=== PATIENT | male | born 1995 | race Hispanic/Latino ===

== ENCOUNTER 2024-09-06 13:32 | Inpatient (IN) | payer OTHER, SELFPAY ==
[2024-09-05 20:03] VITALS: BP 139/84
[2024-09-05 20:58] LABS: ALT (SGPT) 47 U/L (0-50); AST (SGOT) 32 U/L (17-59); Albumin 4.8 g/dl (3.5-5.0); Alkaline Phosphatase 57 U/L (38-126); Blood Urea Nitrogen 13 mg/dl (9-20); Calcium 10.7 mg/dl (8.4-10.2); Carbon Dioxide 23 mmol/L (22-30); Chloride 106 mmol/L (98-107); Glucose 121 mg/dl (70-99); Potassium 5.1 mmol/L (3.5-5.1); Sodium 137 mmol/L (135-145); Total Protein 7.9 g/dl (6.3-8.2); eGFR > 60.00
[2024-09-05] MEDS: TYLENOL 1000 MG PO (21:41)
[2024-09-05] MEDS: ZOFRAN ODT (ORALLY DISINTEGRATING) 4 MG PO (21:45)
--- NOTE | 2024-09-05 22:38 | ED.GENMED ---
History of Present Illness
<John Riggs PA-C - Last Filed: 09/06/24 15:44>
General
Chief Complaint: Flank Pain
Source: patient
Time Seen by Provider: 09/05/24 22:20
History of Present Illness
History of Present Illness:
29-year-old male with no significant past medical history presents to the emergency department for evaluation of sudden onset left flank pain earlier this evening accompanied with nausea and vomiting, nonbloody nonbilious, minimal relief with 800 mg
of ibuprofen at 6 PM, pain currently still 9 out of 10. Patient was given Tylenol and Zofran in triage with improvement of nausea but minimal relief with pain. No history of similar. Denies any urinary symptoms. No bowel changes. No pain or
swelling of the testicles.
Past History
<John Riggs PA-C - Last Filed: 09/06/24 15:44>
Past History
ED Past Medical History: None
ED Past Surgical History: None
Social History
Tobacco: Non-smoker
Alcohol: None
Drug: Marijuana
Personal:
Living: with family
Review of Systems
<John Riggs PA-C - Last Filed: 09/06/24 15:44>
Review of Systems
All Other Systems: ROS reviewed and negative except as documented in HPI and ROS
Phy Exam
<John Riggs PA-C - Last Filed: 09/06/24 15:44>
Physical Exam
Physical Exam:
GENERAL: Alert , appears uncomfortable
EYE: clear conjunctiva b/l
HEAD: NCAT
ENT: mmm.
CARDIAC: Regular rate and rhythm .
LUNGS: Clear breath sounds bilaterally, no acute respiratory distress, no wheezes/rales/rhonchi
ABDOMEN: Soft, without focal tenderness, no r/g, left CVA tenderness
NEUROLOGICAL: Alert and oriented
SKIN: Warm and dry, skin intact.
MUSCULOSKELETAL: No edema, well perfused.
PSYCH: Normal and appropriate interaction.
Scores
<John Riggs PA-C - Last Filed: 09/06/24 15:44>
Heart Failure Risk
Heart Failure Risk Score: Not Applicable
Heart Score for Chest Pain Patients
STEMI patient?: Not applicable
Withdrawal Assessment of Alcohol
Withdrawal Assessment Completed?: Not applicable
Course
<John Riggs PA-C - Last Filed: 09/06/24 15:44>
Orders/Labs/Results
Orders:
Orders
09/05/24 20:06
Urinalysis Reflex To Culture Urgent
Date Specimen was Collected: 09/05/24
Time Specimen was Collected: 20:06
09/05/24 20:08
CT Abd/pel Without Iv Or Oral Urgent
Comment:
Reason For Exam: flank pain
09/05/24 20:23
Comprehensive Metabolic Panel Urgent
09/05/24 21:37
Acetaminophen [Tylenol] 1,000 mg .ROUTE .STK-MED ONE
09/05/24 21:40
Acetaminophen [Tylenol] 1,000 mg PO NOW STA
09/05/24 21:44
Ondansetron Orally Disint [Zofran Odt (Orally Disintegrating)] 4 mg .ROUTE .STK-MED ONE
Ondansetron Orally Disint [Zofran Odt (Orally Disintegrating)] 4 mg PO NOW STA
09/05/24 22:27
0.9% Sodium Chloride 1000 ml [Nss] 1,000 ml IV BOLUS
Morphine Sulfate 4 mg IV NOW STA
Ondansetron Injectable [Zofran] 4 mg IV NOW STA
09/05/24 23:01
Complete Blood Count/With Diff Urgent
09/05/24 23:42
HYDROmorphone [Dilaudid] 0.5 mg IV NOW STA
09/06/24 01:06
Urine Microscopic Reflex Cult Urgent
Urine Culture Urgent
MANUELITO Source: U
Specimen Description:
Date Specimen was Collected: 09/05/24
Time Specimen was Collected: 20:06
09/06/24 02:02
CefTRIAXone [Rocephin] 2,000 mg IV NOW STA
Ketorolac [Toradol] 15 mg IV NOW STA
09/06/24 02:10
Sterile Water [Sterile Water For Injection] 20 ml .ROUTE .STK-MED
09/06/24 02:32
Admit/Transfer Patient As Directed
Co-Sign Provider:
Level of Care: Observation services
Assign to:: Medical/Surgical
Physician / Group: Kanchan Hernandes
Diagnosis: nephrolithiasis
09/06/24 02:33
Code Status As Directed
Resuscitation Status: Full Code
PRN Pain Medication Management As Directed
May give lesser potent ordered pain med per pt: Yes
preference::
Protocol:: Medication orders for pain may be administered in a
manner that supports deferring to patient preference
when the pt is:
- Requesting an ordered lesser potent pain medication.
Least to most potent pain medications are defined
as: acetaminophen < NSAID < tramadol < opioids
(morphine, oxycodone, hydromorphone).
- Requesting a lesser dose of the same medication IF
ORDERED.
- Requesting a less intrusive route of administration
if both routes are prescribed by the provider (PO <
IV).
09/06/24 03:27
0.9% Sodium Chloride 1000 ml [Nss] 1,000 ml IV 100 mls/hr
Acetaminophen [Tylenol] 650 mg PO Q4HPRN PRN
Bisacodyl [Dulcolax] 10 mg RECTAL [id number] PRN
HYDROmorphone [Dilaudid] 0.5 mg IV Q4HPRN PRN
Ketorolac [Toradol] 10 mg IV Q6HPRN PRN
Ondansetron Injectable [Zofran] 4 mg IV Q6HPRN PRN
Polyethylene Glycol Powder [Miralax] 17 grams PO DAILYPRN PRN
09/06/24 03:27
Consult Notification Routine
Specialty to Notify: Urology
Date consulting provider notified: 09/06/24
Time consulting provider notified: 07:36
Notified:: Provider
UROLOGY CONSULT Routine
Consulting Provider: Sai Ford
Was physician already notified: No
Comment: cholelithiasis
Activity As Directed
Activity Level: Out of Bed-Early Mobility
Pneumatic Compression Sleeves As Directed
Type: Knee high
Strain Urine As Directed
Vital Signs As Directed
Frequency: Per unit guidelines
DX Deep Vein Thrombosis Video Routine
09/06/24 04:00
Flush (0.9% Sodium Chloride) [Flush (Nss)] See Dose Instructions IV PER PROTOCOL
09/06/24 05:46
Basic Metabolic Panel IN AM
Complete Blood Count/No Diff IN AM
Prothrombin Time IN AM
09/06/24 Breakfast
NPO
Allow oral meds: Yes
Allow clear liquids: No
09/06/24 08:00
Tamsulosin [Flomax] 0.4 mg PO DAILY
09/06/24 09:34
Fentanyl Citrate/Pf [Sublimaze] 25 mcg IV [id number] PRN
Fentanyl Citrate/Pf [Sublimaze] 25 mcg IV PACU-Q5MPRN PRN
Fentanyl Citrate/Pf [Sublimaze] 50 mcg IV PACU-Q5MPRN PRN
Ondansetron Injectable [Zofran] 4 mg IV PACU-ONCEPRN PRN
Prochlorperazine [Compazine] 5 mg IV PACU-ONCEPRN PRN
Notify MD As Directed
Notify physician if: for SDS patients with known or suspected sleep obstructive sleep apnea, monitor in the
PACU.
Notify MD for any apneic/desaturation episodes
O2 Therapy [RESP] Urgent
Titrate/Wean O2 to maintain O2 sat greater than (%): 92
Special Instructions: -Provide supplemental oxygen to achieve O2 sat of 92% or greater.
-After 15 min, may wean O2 and discontinue if patient is able to maintain O2 sat of 92%
or greater during recovery period.
If patient is a discharge home, without oxygen therapy, notify anestheiologist if
unable to maintain O2 SAT of 92% or greater on room air for MD clearance.
09/06/24 09:38
Lidocaine HCl/Pf [Xylocaine-Mpf 1% Vial] 50 mg .ROUTE .STK-MED ONE
Propofol [Diprivan] 20 ml .ROUTE .STK-MED
09/06/24 09:42
Lidocaine 2% [Lidocaine Uro-Jet 2%] 1 syringe .ROUTE .STK-MED ONE
09/06/24 09:45
Normosol (Mult Electrolytes) [Normosol-R/Plasmalyte-A] 1,000 ml IV PER PROTOCOL
09/06/24 Lunch
Regular
At Your Request: Limited Participation
09/06/24 10:14
Ketamine Concentrate Injection [Ketamine HCl] 500 mg .ROUTE .STK-MED ONE
Midazolam HCl [Versed] 2 mg .ROUTE .STK-MED ONE
09/06/24 10:16
Ketamine 5 ml .ROUTE .STK-MED
09/06/24 10:47
Stone Analysis With Image [S] Routine
Comment: left ureteral stone
09/06/24 10:49
Acetaminophen 1000MG/100Ml [Ofirmev] 1,000 mg in 100 ml .ROUTE .STK-MED
Dexamethasone Sod Phosphate [Decadron] 20 mg .ROUTE .STK-MED ONE
Famotidine [Pepcid] 20 mg .ROUTE .STK-MED ONE
Ketorolac [Toradol] 30 mg .ROUTE .STK-MED ONE
Ondansetron Injectable [Zofran] 4 mg .ROUTE .STK-MED ONE
09/06/24 11:00
Phenazopyridine HCl [Pyridium] 200 mg PO NOW STA
Tolterodine Extended Release [Detrol LA] 4 mg PO NOW STA
09/06/24 11:07
CR Abdomen - 1 View Routine
Reason For Exam: CYSTO, LT URETEROSCOPY, LASER, LITHO, STENT PLACED
RF Fluoroscopy, C-arm Routine
09/06/24 12:04
Phenazopyridine HCl [Pyridium] 200 mg .ROUTE .STK-MED ONE
Tolterodine Extended Release [Detrol LA] 4 mg .ROUTE .STK-MED ONE
09/07/24 00:00
CefTRIAXone [Rocephin] 1,000 mg IV Q24H
Sterile Water [Sterile Water For Injection] 10 ml IV Q24H
09/07/24 06:00
BMP [Basic Metabolic Panel] IN AM
CBC/With Diff [Complete Blood Count/With Diff] IN AM
Abnormal Lab Results
09/05/24 09/05/24 09/06/24
20:23 23:01 01:06
WBC 17.2 H 10^3/uL
(4.8-10.8)
RBC 4.64 L 10^6/uL
(4.70-6.10)
MCH 31.7 H pg
(27.0-31.0)
MPV 10.7 H fL
(7.4-10.4)
Abs Immat Gran (auto) 0.1 H 10^3/uL
(0-0.05)
Absolute Neuts (auto) 15.1 H 10^3/uL
(1.4-6.5)
Absolute Lymphs (auto) 1.1 L 10^3/uL
(1.2-3.4)
Absolute Monos (auto) 0.9 H 10^3/uL
(0.1-0.6)
Neutrophils % 87.6 H %
(42.2-75.2)
Lymphocytes % 6.5 L %
(20.5-51.1)
Creatinine
Glucose 121 H mg/dl
(70-99)
Calcium 10.7 H mg/dl
(8.4-10.2)
Urine Ketones 2+ A
(Negative)
Ur Occult Blood Reflex 4+ A
(Negative)
Leukocyte Esterase Rfl 1+ A
(Negative)
Urine RBC >100 A /HPF
(0-2)
Urine Bacteria (Reflex) Few A
(Negative)
Urine Albumin (Reflex) 2+ A
(Neg - Trace)
09/06/24
05:46
WBC 16.7 H 10^3/uL
(4.8-10.8)
RBC 4.33 L 10^6/uL
(4.70-6.10)
MCH 31.4 H pg
(27.0-31.0)
MPV 11.7 H fL
(7.4-10.4)
Abs Immat Gran (auto)
Absolute Neuts (auto)
Absolute Lymphs (auto)
Absolute Monos (auto)
Neutrophils %
Lymphocytes %
Creatinine 1.4 H mg/dL
(0.7-1.3)
Glucose 109 H mg/dl
(70-99)
Calcium
Urine Ketones
Ur Occult Blood Reflex
Leukocyte Esterase Rfl
Urine RBC
Urine Bacteria (Reflex)
Urine Albumin (Reflex)
09/06/24 05:46
09/06/24 05:46
Vital Signs
Initial and Last Documented VS:
Initial Vital Signs
Temp Pulse Resp BP Pulse Ox
98.2 F 50 22 139/84 100
09/05/24 20:03 09/05/24 20:03 09/05/24 20:03 09/05/24 20:03 09/05/24 20:03
Last Documented Vital Signs
Temp Pulse Resp BP Pulse Ox
98.6 F 75 18 110/71 98
09/06/24 13:30 09/06/24 13:30 09/06/24 13:30 09/06/24 13:30 09/06/24 13:30
<Mariana Mclaughlin PA-C - Last Filed: 09/06/24 05:48>
Orders/Labs/Results
Orders:
Orders
09/05/24 20:06
Urinalysis Reflex To Culture Urgent
Date Specimen was Collected: 09/05/24
Time Specimen was Collected: 20:06
09/05/24 20:08
CT Abd/pel Without Iv Or Oral Urgent
Comment:
Reason For Exam: flank pain
09/05/24 20:23
Comprehensive Metabolic Panel Urgent
09/05/24 21:37
Acetaminophen [Tylenol] 1,000 mg .ROUTE .STK-MED ONE
09/05/24 21:40
Acetaminophen [Tylenol] 1,000 mg PO NOW STA
09/05/24 21:44
Ondansetron Orally Disint [Zofran Odt (Orally Disintegrating)] 4 mg .ROUTE .STK-MED ONE
Ondansetron Orally Disint [Zofran Odt (Orally Disintegrating)] 4 mg PO NOW STA
09/05/24 22:27
0.9% Sodium Chloride 1000 ml [Nss] 1,000 ml IV BOLUS
Morphine Sulfate 4 mg IV NOW STA
Ondansetron Injectable [Zofran] 4 mg IV NOW STA
09/05/24 23:01
Complete Blood Count/With Diff Urgent
09/05/24 23:42
HYDROmorphone [Dilaudid] 0.5 mg IV NOW STA
09/06/24 01:06
Urine Microscopic Reflex Cult Urgent
Urine Culture Urgent
MANUELITO Source: U
Specimen Description:
Date Specimen was Collected: 09/05/24
Time Specimen was Collected: 20:06
09/06/24 02:02
CefTRIAXone [Rocephin] 2,000 mg IV NOW STA
Ketorolac [Toradol] 15 mg IV NOW STA
09/06/24 02:10
Sterile Water [Sterile Water For Injection] 20 ml .ROUTE .STK-MED
09/06/24 02:32
Admit/Transfer Patient As Directed
Co-Sign Provider:
Level of Care: Observation services
Assign to:: Medical/Surgical
Physician / Group: Kanchan Hernandes
Diagnosis: nephrolithiasis
09/06/24 02:33
Code Status As Directed
Resuscitation Status: Full Code
PRN Pain Medication Management As Directed
May give lesser potent ordered pain med per pt: Yes
preference::
Protocol:: Medication orders for pain may be administered in a
manner that supports deferring to patient preference
when the pt is:
- Requesting an ordered lesser potent pain medication.
Least to most potent pain medications are defined
as: acetaminophen < NSAID < tramadol < opioids
(morphine, oxycodone, hydromorphone).
- Requesting a lesser dose of the same medication IF
ORDERED.
- Requesting a less intrusive route of administration
if both routes are prescribed by the provider (PO <
IV).
09/06/24 03:27
0.9% Sodium Chloride 1000 ml [Nss] 1,000 ml IV 100 mls/hr
Acetaminophen [Tylenol] 650 mg PO Q4HPRN PRN
Bisacodyl [Dulcolax] 10 mg RECTAL [id number] PRN
HYDROmorphone [Dilaudid] 0.5 mg IV Q4HPRN PRN
Ketorolac [Toradol] 10 mg IV Q6HPRN PRN
Ondansetron Injectable [Zofran] 4 mg IV Q6HPRN PRN
Polyethylene Glycol Powder [Miralax] 17 grams PO DAILYPRN PRN
09/06/24 03:27
Consult Notification Routine
Specialty to Notify: Urology
Date consulting provider notified: 09/06/24
Time consulting provider notified: 07:36
Notified:: Provider
UROLOGY CONSULT Routine
Consulting Provider: Sai Ford
Was physician already notified: No
Comment: cholelithiasis
Activity As Directed
Activity Level: Out of Bed-Early Mobility
Pneumatic Compression Sleeves As Directed
Type: Knee high
Strain Urine As Directed
Vital Signs As Directed
Frequency: Per unit guidelines
DX Deep Vein Thrombosis Video Routine
09/06/24 04:00
Flush (0.9% Sodium Chloride) [Flush (Nss)] See Dose Instructions IV PER PROTOCOL
09/06/24 05:46
Basic Metabolic Panel IN AM
Complete Blood Count/No Diff IN AM
Prothrombin Time IN AM
09/06/24 Breakfast
NPO
Allow oral meds: Yes
Allow clear liquids: No
09/06/24 08:00
Tamsulosin [Flomax] 0.4 mg PO DAILY
09/06/24 09:34
Fentanyl Citrate/Pf [Sublimaze] 25 mcg IV [id number] PRN
Fentanyl Citrate/Pf [Sublimaze] 25 mcg IV PACU-Q5MPRN PRN
Fentanyl Citrate/Pf [Sublimaze] 50 mcg IV PACU-Q5MPRN PRN
Ondansetron Injectable [Zofran] 4 mg IV PACU-ONCEPRN PRN
Prochlorperazine [Compazine] 5 mg IV PACU-ONCEPRN PRN
Notify MD As Directed
Notify physician if: for SDS patients with known or suspected sleep obstructive sleep apnea, monitor in the
PACU.
Notify MD for any apneic/desaturation episodes
O2 Therapy [RESP] Urgent
Titrate/Wean O2 to maintain O2 sat greater than (%): 92
Special Instructions: -Provide supplemental oxygen to achieve O2 sat of 92% or greater.
-After 15 min, may wean O2 and discontinue if patient is able to maintain O2 sat of 92%
or greater during recovery period.
If patient is a discharge home, without oxygen therapy, notify anestheiologist if
unable to maintain O2 SAT of 92% or greater on room air for MD clearance.
09/06/24 09:38
Lidocaine HCl/Pf [Xylocaine-Mpf 1% Vial] 50 mg .ROUTE .STK-MED ONE
Propofol [Diprivan] 20 ml .ROUTE .STK-MED
09/06/24 09:42
Lidocaine 2% [Lidocaine Uro-Jet 2%] 1 syringe .ROUTE .STK-MED ONE
09/06/24 09:45
Normosol (Mult Electrolytes) [Normosol-R/Plasmalyte-A] 1,000 ml IV PER PROTOCOL
09/06/24 Lunch
Regular
At Your Request: Limited Participation
09/06/24 10:14
Ketamine Concentrate Injection [Ketamine HCl] 500 mg .ROUTE .STK-MED ONE
Midazolam HCl [Versed] 2 mg .ROUTE .STK-MED ONE
09/06/24 10:16
Ketamine 5 ml .ROUTE .STK-MED
09/06/24 10:47
Stone Analysis With Image [S] Routine
Comment: left ureteral stone
09/06/24 10:49
Acetaminophen 1000MG/100Ml [Ofirmev] 1,000 mg in 100 ml .ROUTE .STK-MED
Dexamethasone Sod Phosphate [Decadron] 20 mg .ROUTE .STK-MED ONE
Famotidine [Pepcid] 20 mg .ROUTE .STK-MED ONE
Ketorolac [Toradol] 30 mg .ROUTE .STK-MED ONE
Ondansetron Injectable [Zofran] 4 mg .ROUTE .STK-MED ONE
09/06/24 11:00
Phenazopyridine HCl [Pyridium] 200 mg PO NOW STA
Tolterodine Extended Release [Detrol LA] 4 mg PO NOW STA
09/06/24 11:07
CR Abdomen - 1 View Routine
Reason For Exam: CYSTO, LT URETEROSCOPY, LASER, LITHO, STENT PLACED
RF Fluoroscopy, C-arm Routine
09/06/24 12:04
Phenazopyridine HCl [Pyridium] 200 mg .ROUTE .STK-MED ONE
Tolterodine Extended Release [Detrol LA] 4 mg .ROUTE .STK-MED ONE
09/07/24 00:00
CefTRIAXone [Rocephin] 1,000 mg IV Q24H
Sterile Water [Sterile Water For Injection] 10 ml IV Q24H
09/07/24 06:00
BMP [Basic Metabolic Panel] IN AM
CBC/With Diff [Complete Blood Count/With Diff] IN AM
Abnormal Lab Results
09/05/24 09/05/24 09/06/24
20:23 23:01 01:06
WBC 17.2 H 10^3/uL
(4.8-10.8)
RBC 4.64 L 10^6/uL
(4.70-6.10)
MCH 31.7 H pg
(27.0-31.0)
MPV 10.7 H fL
(7.4-10.4)
Abs Immat Gran (auto) 0.1 H 10^3/uL
(0-0.05)
Absolute Neuts (auto) 15.1 H 10^3/uL
(1.4-6.5)
Absolute Lymphs (auto) 1.1 L 10^3/uL
(1.2-3.4)
Absolute Monos (auto) 0.9 H 10^3/uL
(0.1-0.6)
Neutrophils % 87.6 H %
(42.2-75.2)
Lymphocytes % 6.5 L %
(20.5-51.1)
Creatinine
Glucose 121 H mg/dl
(70-99)
Calcium 10.7 H mg/dl
(8.4-10.2)
Urine Ketones 2+ A
(Negative)
Ur Occult Blood Reflex 4+ A
(Negative)
Leukocyte Esterase Rfl 1+ A
(Negative)
Urine RBC >100 A /HPF
(0-2)
Urine Bacteria (Reflex) Few A
(Negative)
Urine Albumin (Reflex) 2+ A
(Neg - Trace)
09/06/24
05:46
WBC 16.7 H 10^3/uL
(4.8-10.8)
RBC 4.33 L 10^6/uL
(4.70-6.10)
MCH 31.4 H pg
(27.0-31.0)
MPV 11.7 H fL
(7.4-10.4)
Abs Immat Gran (auto)
Absolute Neuts (auto)
Absolute Lymphs (auto)
Absolute Monos (auto)
Neutrophils %
Lymphocytes %
Creatinine 1.4 H mg/dL
(0.7-1.3)
Glucose 109 H mg/dl
(70-99)
Calcium
Urine Ketones
Ur Occult Blood Reflex
Leukocyte Esterase Rfl
Urine RBC
Urine Bacteria (Reflex)
Urine Albumin (Reflex)
09/06/24 05:46
09/06/24 05:46
Vital Signs
Initial and Last Documented VS:
Initial Vital Signs
Temp Pulse Resp BP Pulse Ox
98.2 F 50 22 139/84 100
09/05/24 20:03 09/05/24 20:03 09/05/24 20:03 09/05/24 20:03 09/05/24 20:03
Last Documented Vital Signs
Temp Pulse Resp BP Pulse Ox
98.6 F 75 18 110/71 98
09/06/24 13:30 09/06/24 13:30 09/06/24 13:30 09/06/24 13:30 09/06/24 13:30
<John Riggs PA-C - Last Filed: 09/06/24 15:44>
MDM/Problems Addressed
Differential Diagnosis Includes:
Renal/ureteral colic
Ureterolithiasis
Diverticulitis
GERD/gastritis
Musculoskeletal back pain
Cystitis
Pyelonephritis
MDM/Problems Addressed:
29-year-old male presenting to the ER for sudden onset of left flank pain nausea and vomiting. Minimal relief with 800 mg of Motrin at home. Was given Tylenol and Zofran in triage, improvement in nausea but still with pain and does appear quite
uncomfortable here. Given he already took the 800 mg of Motrin 4 hours prior to time of my exam unable to treat with Toradol. Will treat with morphine instead. Additional Zofran IV ordered as well as 1 L normal saline. Disposition pending
<John Riggs PA-C - Last Filed: 09/06/24 15:44>
*Radiology
Radiology exam reviewed: radiology read reviewed
*Pulse Oximetry
SaO2: 100
Oxygen Mode of Delivery: Room air
Patient hypoxic: no
<Mariana Mclaughlin PA-C - Last Filed: 09/06/24 05:48>
*Critical Care Note
Total Time (30-74mins, 75-104mins- exclusive of procedures): Not Applicable
<John Riggs PA-C - Last Filed: 09/06/24 15:44>
Patient Management
Escalation/DeEscalation of care consider admission/obs:
Patient CT scan shows 3.8 mm ureteral stone at the distal left ureter. Other incidental findings discussed with the patient and he was provided with a printout of CT report, will follow-up with primary care provider for this.
<Mariana Mclaughlin PA-C - Last Filed: 09/06/24 05:48>
Update Note
Update Note:
Update
I received patient in sign out.
On my physical exam, patient appears uncomfortable secondary to pain
He is requesting more pain medication
Will plan to admit for pain control
Dr. Ford made aware with plans to go to OR in the morning
Patient has no urinary symptoms but in light of wbc count and bacteria on urinalysis will intiate rocephin
ED Attending Note
<John Riggs PA-C - Last Filed: 09/06/24 15:44>
-
Portions of this chart may have been created with voice recognition software.� Occasional wrong word or��sound alike� substitutions may have occurred due to the inherent limitations of voice recognition software.
Discharge Plan
Departure
Patient Disposition: Admit
Date of Disposition: 09/06/24
Time of Disposition: 02:10
Admit to: Med/Surg
Presentation/result/management discussed w/ accepting MD/DO: Hospitalist
Patient with high blood pressure during this ER visit?: Yes
Condition: Fair
Discharge Problem:
Calculus of left kidney
Interventions
Interventions:
*Risk Screen - Suicide Last Done: 09/06/24 03:40
*General Assessment Last Done: 09/05/24 20:03
*Neglect/Abuse Screening Last Done: 09/05/24 20:03
*ED- Fall Risk Assessment Last Done: 09/05/24 23:11
*Nursing Disposition Last Done: 09/06/24 03:24
AR-Ippmdl-Brxvrktlws Assessment Last Done: 09/05/24 23:11
ED-Male Genitourinary Assessment Last Done: 09/05/24 23:11
Discharge Date and Time
Discharge Date/Time: 09/06/24 03:24
[2024-09-05 22:57] VITALS: BP 124/74; BMI 39.6
[2024-09-05] MEDS: NSS 1000 IV (23:04)
[2024-09-05] MEDS: ZOFRAN 4 MG IV (23:06)
[2024-09-05] MEDS: MORPHINE SULFATE 4 MG IV (23:07)
--- NOTE | 2024-09-05 23:13 | EDRN ---
Pt developed L flank pain around 1300 that waxes and wanes, sometimes sharp in nature, radiating into L groin. Pt took motrin 800mg around 1800. Pt vomited few times on the way to the ED. No vomiting or nausea since given PO zofran in triage.
Last BM this morning. No fever/cough, cp, sob, urinary symptoms.
[2024-09-05 23:19] LABS: Hematocrit 41.9 % (39.0-52.0); Hemoglobin 14.7 g/dL (13.0-18.0); Mean Corp Hgb Conc. 35.1 g/dL (33.0-37.0); Mean Corpuscular Volume 90.3 fL (80.0-94.0); Nucleated Red Blood Cells % 0 % (-); Platelet Count 246 10^3/uL (130-400); Red Cell Dist. Width 12.7 % (11.5-14.5)
[2024-09-06] VITALS (15 sets, daily range): BP systolic 104–139; BP diastolic 64–86; BMI 39.6
[2024-09-06 01:12] LABS: Urine Character Cloudy (Clear)
[2024-09-06 01:35] LABS: Urine Red Blood Cell >100 /HPF (0-2); Urine Squamous Cell 0-2 /LPF (Few)
[2024-09-06] MEDS: TORADOL 15 MG IV (02:21)
[2024-09-06] MEDS: ROCEPHIN 2000 MG IV (02:23)
--- NOTE | 2024-09-06 02:32 | HPS.HSE ---
Family Physician
-
Family Physician: Cuco Mcdonald MD
Chief Complaint
-
Flank pain
History of Present Illness
29-year-old male with no known significant past medical history presenting to the emergency department with left-sided flank pain.
Patient reports acute onset of flank pain within 24 hours of admission. Reports that the pain is radiating to the groin and associated with nausea and vomiting. He had nonbloody and nonbilious emesis 6 times throughout the day today. Denies any
hematuria. Denies any fevers or chills. Patient denies any prior history of kidney stones but reports family history of kidney stones.
In the emergency department patient was afebrile, temp 98.2, blood pressure 124/85 with a pulse of 55 satting 97% on room air.
He has a leukocytosis of 7.2 otherwise CBC unremarkable. Electrolytes were normal. BUN and creatinine were normal.
He has his CT scan showing mild to moderate acute left hydroureteronephrosis with a 3.8 mm obstructing calculus in the left mid ureter. Diffuse hepatic steatosis and mild hepatomegaly noted. Mild chronic pancolitis also noted.
Medical History
Past Medical History
Past Medical History: Reports None
Past Surgical History: Reports None
Social History
Tobacco: Non-smoker
Alcohol: None
Drug: None
Personal: Partner
Living: With Family
Employment: Employed
Family History
Family History: Not pertinent
Allergies / Home Medications
Allergies reflects when Allergies were last updated in [employer].
Home Medications with original date entered in [employer] [facility]
Allergy/Medication List:
Allergies
Allergy/AdvReac Type Severity Reaction Status Date / Time
No Known Allergies Allergy Unverified 09/05/24 20:05
Home Medications
ondansetron 4 mg disintegrating tablet 4 mg PO TIDPRN PRN nausea/vomiting #10 tabs 09/05/24
oxycodone-acetaminophen 5 mg-325 mg tablet (Percocet) 1 tab PO Q6HPRN PRN pain #6 tabs 09/05/24
tamsulosin 0.4 mg capsule (Flomax) 0.4 mg PO DAILY #10 caps 09/05/24
Review of Systems
-
Constitutional: Reports No Symptoms
EENT: Reports No Symptoms
Respiratory: Reports No Symptoms
Cardiac: Reports No Symptoms
Abdomen/GI: Reports No Symptoms
: Reports Flank Pain
Musculoskeletal: Reports No Symptoms
Skin: Reports No Symptoms
Neurological: Reports No Symptoms
Endocrine: Reports No Symptoms
Hematologic/Lymphatic: Reports No Symptoms
Psych: Reports No Symptoms
Physical Exam
Vital Signs
Vital Signs
Temp Pulse Resp BP Pulse Ox
98.2 F 55 16 124/84 97
09/05/24 20:03 09/06/24 00:57 09/06/24 00:57 09/06/24 00:57 09/06/24 00:57
Physical Exam
General: Well Developed, Well Nourished and No Apparent Distress
HEENT: NormoCephalic, Moist mucous membranes and Atraumatic
Respiratory: Clear
Cardiac: S1/S2 and Regular Rhythm; No Murmur or Rub
GI: Soft, Non Tender, Non Distended and Normal Bowel Sounds; No Organomegaly
Rectal: Deferred by Provider
Musculoskeletal: No Clubbing, No Cyanosis and No Edema
Skin: No Rash
Neuro: Nonfocal/grossly intact
Laboratory Results
-
09/05/24 23:01
09/05/24 20:23
Laboratory Results
Total Bilirubin 0.9 mg/dl (0.2-1.3) 09/05/24 20:23
AST 32 U/L (17-59) 09/05/24 20:23
ALT 47 U/L (0-50) 09/05/24 20:23
Alkaline Phosphatase 57 U/L (38-126) 09/05/24 20:23
Data Reviewed
-
CT Scan: Report Reviewed by me
Lab Data: Labs Reviewed by me
Old Records: Reviewed
Impression/Plan
-
IMPRESSION:
29-year-old male presenting with flank pain and found to have a left 3.8 mm obstructing ureteral calculus in the left mid ureter. He is afebrile. He does have leukocytosis to 7.2. UA is equivocal with 1+ leukocyte esterase and a few WBCs, few
bacteria. No nitrites. He is hemodynamically stable. There is mild to moderate acute hydroureteronephrosis on the left.
PLAN:
Obstructing urolithiasis -mild hydro, no evidence of an acute infection, renal function is preserved.
� Admit to MedSurg observation
� Pain control with Toradol, Dilaudid and acetaminophen
- Antiemetic
- N.p.o. for now
- IV fluid with NS at 100 cc an hour
- Continue tamsulosin
- Strain urine
- Low risk for infection, continue ceftriaxone for now consider DC if patient remains afebrile and WBC trended down with pain control
-Urology consulted and aware, suspect patient can go home with medical therapy and follow-up.
DVT prophylaxis�SCDs
CODE STATUS�full code
--- NOTE | 2024-09-06 03:39 | PTCARENOTE ---
patient arrived from ED via stretcher. Patient ambulatory from stretcher to bed. Patient aaox3, able to make needs known. IV flushed and patent.
[2024-09-06] MEDS: NSS 1000 IV ×3 (03:47→23:18)
[2024-09-06] MEDS: ZOFRAN 4 MG IV (04:26)
[2024-09-06] MEDS: DILAUDID 0.5 MG IV ×2 (04:26)
[2024-09-06 06:52] LABS: Hematocrit 39.8 % (39.0-52.0); Hemoglobin 13.6 g/dL (13.0-18.0); Mean Corp Hgb Conc. 34.2 g/dL (33.0-37.0); Mean Corpuscular Volume 91.9 fL (80.0-94.0); Platelet Count 231 10^3/uL (130-400); Red Cell Dist. Width 12.7 % (11.5-14.5)
[2024-09-06 06:55] LABS: INR 1.07; PT 14.2 Sec (11.4-14.6)
[2024-09-06 07:12] LABS: Blood Urea Nitrogen 14 mg/dl (9-20); Calcium 9.4 mg/dl (8.4-10.2); Carbon Dioxide 24 mmol/L (22-30); Chloride 106 mmol/L (98-107); Estimated Creatinine Clearance 92 ml/min; Glucose 109 mg/dl (70-99); Potassium 4.5 mmol/L (3.5-5.1); Sodium 137 mmol/L (135-145); eGFR > 60.00
[2024-09-06] MEDS: FLOMAX 0.4 MG PO (08:29)
--- NOTE | 2024-09-06 08:37 | W.PN.URO.CBU ---
Today's Communication / Plan
-
possible op room
Assessment / Plan
-
paasable stone but wbc 16 k at risk uti pt deciding serenatrh prefers trial of assage but risks septicemia vs op room for potentially passable stone
Diagnosis
-
Date of Service: September 06, 2024
-
Patient Diagnosis:mid left 3.8 ureteral stone with leukocytosis no fever intractable pain at ag of admit now comfortable no fever chills
Post Op Day:
Subjective
-
no pain 90 mins did not pass dtone no fevr
Objective
-
Vital Signs
Temp Pulse Resp BP Pulse Ox
98.1 F 77 16 139/74 98
09/06/24 07:15 09/06/24 07:15 09/06/24 07:15 09/06/24 07:15 09/06/24 07:15
Laboratory Results
09/06/24 05:46
09/06/24 05:46
Review of Systems
-
: Flank Pain
Physical Exam
-
General - well developed, well nourished, no acute distress
Chest - clear bilaterally
Abdomen - soft, non-tender, positive bowel sounds, no CVAT, no incisional pain or distention
Genitalia - normal
Rectal - normal
Skin - warm & dry with no rash
Neuro - AOx3, no motor deficits
Extremities - no clubbing, no cyanosis, no edema
Incision - clean, dry
Dressing - clean, dry, intact
Care Review
Data Reviewed
Discussed with: Nursing
CT Scan: Image Pers Reviewed
--- NOTE | 2024-09-06 10:10 | W.SUR.PREOP ---
Pre-Operative Surgical Note
-
I have examined this patient prior to the performance of the scheduled procedure.
The patient's condition is unchanged from the time of the current History and
Physical and the patient is able to undergo the scheduled procedure.
CT imaging/report reviewed.
Labs reviewed.
4-5 mm stone in mid left ureter noted w/ leukocytosis.
Reviewed risks, benefits, alternatives, and potential complications of ULS in detail (including but not limited to urosepsis, bleeding, ureteral/bladder injury, risk of ureteral stricture formation, need for additional procedures/surgeries).
To OR for left ULS
Surgical consent signed in preop holding
Left laterality marked
IV Ceftriaxone 1g q24 - supervisor dehydrogenation to OR
D/w patient.
--- NOTE | 2024-09-06 10:40 | CM ---
Patient seen in [address] [place] [address] but stated he is enroute to bathroom and transport here for him to go to surgery. CM left for physician to clarify OBS status. CM will return to see patient after surgery. CM will continue to follow for discharge planning
needs.
Plan; home with no needs anticipated
--- NOTE | 2024-09-06 10:58 | W.IMMPOSTOP ---
Surgical Immed Post Op Note
-
Primary Surgeon: David
Pre-op Diagnosis: Obstructing mid left ureteral stone, leukocytosis
Post-op Diagnosis: Same
Procedure Performed: cysto, left ureteroscopy/stone manipulation/laser lithotripsy/stone extraction/stent placement
Anesthesia Type: LMA
Specimen / Cultures: left ureteral stone for analysis/None
Estimated Blood Loss: Negligible
Drains: 4.7Fr x 24 cm JJ left ureteral stent
Complications: None
Operative Findings:
4 mm stone in mid left ueter fragmented via 200 micron laser fiber to stone dust, purulent debris indicative of infection matrix noted in left renal pelvis.
Final KUB and cystoscopy verifying appropriate stent position at conclusion of procedure.
[2024-09-06] MEDS: DETROL LA 4 MG PO (12:05)
--- NOTE | 2024-09-06 13:33 | PTCARENOTE ---
Pt arrived from PACU at 1225 in a bed. Pt 98% on RA. Pt oriented to room and call rosas. Bed locked and in lowest position. Pt states they are hungry and advised to order lunch. Care ongoing.
--- NOTE | 2024-09-06 13:36 | W.PN.HOSP.TC ---
Today's Communication/Plan
-
See plan
Assessment / Plan
Assessment / Plan
Impression
Complicated UTI.
Infected left ureteral stone.
AMY
Plan:
Status post cystoscopy, left ureteroscopy, stone manipulation, laser lithotripsy, stone extraction and stent placement.
Purulence noted.
Continue IV antibiotics, currently on ceftriaxone with plan to transition to likely quinolone for additional 5 days of therapy
Follow urine culture
Continue IV fluids and follow renal function.
Observe closely overnight
CBC/BMP in a.m.
Anticipated Discharge: 24 - 48 hours
Subjective/Interval History
-
Date of Service: September 06, 2024
Objective Data
-
Labs:
Laboratory Results
09/06/24
05:46
WBC 16.7 H
Hgb 13.6
Hct 39.8
Plt Count 231
PT 14.2
INR 1.07
Sodium 137
Potassium 4.5
Chloride 106
Carbon Dioxide 24
BUN 14
Creatinine 1.4 H
Glucose 109 H
Calcium 9.4
Vital Signs:
Vital Signs
Temp Pulse Resp BP Pulse Ox
98.6 F 75 18 110/71 98
09/06/24 13:30 09/06/24 13:30 09/06/24 13:30 09/06/24 13:30 09/06/24 13:30
I&O
09/05/24 09/06/24 09/07/24
06:59 06:59 06:59
Intake Total 300 / 300
Balance 300 / 300
Physical Exam
-
General: Well Developed and No Apparent Distress
HEENT: Normocephalic, Atraumatic and Moist Mucous Membranes
Respiratory: Clear to Auscultation
Cardiac: Regular Rhythm and S1/S2; Negative Murmur, Rub or Gallop
GI: Soft, Nontender, Nondistended and Normal Bowel Sounds; Negative Organomegaly
Rectal: Deferred by Provider
Musculoskeletal: No Clubbing, No Cyanosis and No Edema
Skin: Negative Rash
Neuro: Nonfocal/Grossly Intact
[2024-09-06] MEDS: ROCEPHIN 1000 MG IV (23:19)
[2024-09-06] MEDS: STERILE WATER FOR INJECTION 10 ML IV (23:19)
[2024-09-07 03:00] VITALS: BP 111/70
[2024-09-07 07:23] LABS: Hematocrit 35.9 % (39.0-52.0); Hemoglobin 12.2 g/dL (13.0-18.0); Mean Corp Hgb Conc. 34.0 g/dL (33.0-37.0); Mean Corpuscular Volume 92.3 fL (80.0-94.0); Nucleated Red Blood Cells % 0 % (-); Platelet Count 209 10^3/uL (130-400); Red Cell Dist. Width 12.9 % (11.5-14.5)
[2024-09-07 07:25] VITALS: BP 138/93
[2024-09-07] MEDS: FLOMAX 0.4 MG PO (08:20)
[2024-09-07] MEDS: TYLENOL 650 MG PO (08:29)
[2024-09-07 08:36] LABS: Blood Urea Nitrogen 13 mg/dl (9-20); Calcium 9.1 mg/dl (8.4-10.2); Carbon Dioxide 20 mmol/L (22-30); Chloride 112 mmol/L (98-107); Estimated Creatinine Clearance > 125 ml/min; Glucose 109 mg/dl (70-99); Potassium 4.4 mmol/L (3.5-5.1); Sodium 139 mmol/L (135-145); eGFR > 60.00
[2024-09-07] MEDS: NSS IV (10:18)
--- NOTE | 2024-09-07 10:41 | W.DCSUMMARY ---
Discharge Summary
Discharge Data
Date of Admission: 09/06/24
Date of Discharge: 09/07/24
-
Pending Results: No
Hospital Course
Patient is a 29 years old male who presented to [facility] with left-sided flank pain. Imaging were consistent with obstructive left renal stone. Patient underwent cystoscopy with left ureteroscopy, stone manipulation, laser lithotripsy,
stone extraction and stent placement. Purulence noted over the procedure. Patient has been placed on ceftriaxone prior to procedure. Postprocedure noted mild elevation of creatinine which improved over the next 24 hours. Patient pain is
reasonably controlled. He has been afebrile and hemodynamically stable. He will be discharged home on 5 additional days of oral levofloxacin and follow-up with urology as outpatient.
Discharge Plan
-
Patient Disposition: Home (Routine Discharge)
Discharge Diagnosis/Procedures: Complicated UTI.
Infected left ureteral stone
Acute kidney injury
Condition: Good
Diet: Regular
Referrals:
Cuco Mcdonald MD [Family Provider, Internal Medicine]
Alonzo Hernandez MD [Active, Urology]
Referral Note: Please call [phone] to schedule a stent removal procedure (in office procedure) with Dr. Hernandez in 1-2 weeks.
Additional Discharge Medication Instructions: Do not take Zofran while on Levofloxacin
Prescriptions:
New
tamsulosin [Flomax] 0.4 mg capsule
0.4 mg PO DAILY Qty: 10 0RF
oxycodone-acetaminophen [Percocet] 5-325 mg tablet
1 tab PO Q6HPRN PRN (Reason: pain) Qty: 6 0RF
levofloxacin 750 mg tablet
750 mg PO DAILY Qty: 5 0RF
Discharge Orders:
Discharge Patient (As Directed); Ordered 09/07/24
Ordered By: Bartolo Campos
Discharge Date and Time
Print Language: MONGOLIAN
[2024-09-07 11:14] VITALS: BP 134/85
--- NOTE | 2024-09-07 11:50 | CM ---
Patient seen at bedside on . Patient now INP and CM reviewed status. Patient stated he will go home with his family and that he lives in a 2 story home with no DME. Patient PCP is with [facility] in [place] and he uses the [facility] on
[facility] in [place]. patient stated that he has no needs at this time. CM will continue to follow for discharge planning needs.
Plan; home with no needs
== END 2024-09-07 11:18 | disposition home or self-care (01) | DRG 661 ==
LOC: 2 SOUTH 13:32
PROVIDERS: Emergency Medicine; Nurse Practitioner Gerontology; Surgery; ADMITTING PHYSICIAN Internal Medicine; ATTENDING PHYSICIAN Internal Medicine; CONSULT PHYSICIAN Specialist; EMERGENCY PHYSICIAN Student in an Organized Health Care Education/Training Program; FAMILY PHYSICIAN Internal Medicine
PROC: 0TC78ZZ Extirpation of Matter from Left Ureter, Via Natural or Artificial Opening Endoscopic (ICD-10-PCS; 2024-09-06)
PROC: 0T778DZ Dilation of Left Ureter with Intraluminal Device, Via Natural or Artificial Opening Endoscopic (ICD-10-PCS; 2024-09-06)
DX: N13.6 Pyonephrosis (principal); N17.9 Acute kidney failure, unspecified
CPT/HCPCS: 74018; 74176; 76000; 80048; 80053; 81003; 81015; 82365; 85025; 85027; 85610; 87086; 96374; 96375; 96376; 99285; C1894; C2617